=== PATIENT | female | born 1940 ===

== ENCOUNTER 2018-06-23 06:15 | Observation (INO) ==
--- NOTE | 2018-06-14 11:21 | EKG Report ---
Test Performed on : 06/14/2018 11:08:26 AM Test Reason : PAT Blood Pressure : / mmHG Vent. Rate : 066 BPM Atrial Rate : 066 BPM P-R Int : 144 ms QRS Dur : 084 ms QT Int : 396 ms P-R-T Axes : 072 078 069 degrees QTc Int : 415 ms Normal sinus rhythm. with sinus arrhythmia. Normal ECG When compared with ECG of 26-JAN-2017 10:47, No significant change was found Confirmed by Rafael PINON, Tani ([id number]) on 06/14/2018 5:29:31 PM
[2018-06-14 11:35] LABS: URINE SOURCE CLEAN CATCH
[2018-06-14 11:37] LABS: BASO# 0.04 X1000 (0.0-0.2); BASO% 0.7 % (0.0-0.8); EOS# 0.08 X1000 (0.0-0.7); EOS% 1.3 % (0.0-10.0); HEMATOCRIT 39.9 % (37.0-47.0); HEMOGLOBIN 12.6 g/dL (12.0-16.0); LYMPH# 1.85 X1000 (1.2-3.4); LYMPH% 30.8 % (20.5-51.1); MCH 29.6 PG (27-31); MCHC 31.6 g/dL (33-37); MCV 93.7 FL (81-99); MONO# 0.38 X1000 (0.11-0.59); MONO% 6.3 % (1.7-9.3); MPV 9.3 FL (7.4-10.4); NEUT# 3.66 X1000 (1.4-6.5); NEUT% 60.9 % (42.2-75.2); PLT 201 X1000 (130-400); RBC 4.26 XMIL (4.2-5.4); RDW 13.6 % (11.5-14.5); WBC 6.01 X1000 (4.8-10.8)
[2018-06-14 11:42] LABS: BILIRUBIN URINE NEGATIVE (NEGATIVE); BLOOD URINE NEGATIVE (NEGATIVE); COLOR YELLOW; GLUCOSE URINE NEGATIVE (NEGATIVE); KETONE URINE NEGATIVE (NEGATIVE); LEUKOCYTES URINE LARGE (NEGATIVE); NITRITE URINE NEGATIVE (NEGATIVE); PROTEIN URINE NEGATIVE (NEGATIVE); TURBIDITY URINE CLEAR (CLEAR); UR EPITHELIAL CELLS <10 /HPF (<10); URINE BACTERIA NEGATIVE /HPF; URINE RBC <10 /HPF (<10); URINE WBC <10 /HPF (<10); UROBILINOGEN URINE NORMAL (NORMAL)
[2018-06-14 11:57] LABS: AGAP 8; BUN 15 mg/dL (8-22); CALCIUM 9.2 mg/dL (8.8-10.2); CHLORIDE 104 mmol/L (98-107); COSMO 280; CREATININE 0.7 mg/dL (0.5-0.9); GLUCOSE 103 mg/dL (70-104); POTASSIUM 4.2 mmol/L (3.5-5.1); SODIUM 140 mmol/L (136-145); TCO2 28 mmol/L (25-35)
[2018-06-14 12:04] LABS: INR 0.97; PROTIME 13.7 Seconds (11.0-16.0)
[2018-06-23] MEDS ORDERED: COLACE ONE (06:57)
[2018-06-23] MEDS ORDERED: REGLAN ONE (06:58)
[2018-06-23] MEDS ORDERED: PEPCID ONE (06:58)
[2018-06-23] MEDS ORDERED: LYRICA ONE (06:58)
[2018-06-23] MEDS ORDERED: KEFZOL 1 GM/D5W 1 GM/50 ML IVPB ONE (06:58)
[2018-06-23] MEDS ORDERED: CELEBREX ONE (06:59)
[2018-06-23] MEDS ORDERED: LR 1,000 ML ONE (06:59)
[2018-06-23] MEDS ORDERED: DIPRIVAN 1% ONE (08:03)
[2018-06-23] MEDS ORDERED: FENTANYL ONE (08:03)
[2018-06-23] MEDS ORDERED: VERSED ONE ×2 (08:03)
[2018-06-23] MEDS ORDERED: EPHEDRINE ONE (08:04)
[2018-06-23] MEDS ORDERED: TORADOL ONE (08:12)
[2018-06-23] MEDS ORDERED: VANCOMYCIN ONE (08:12)
[2018-06-23] MEDS ORDERED: DURAMORPH ONE (08:12)
[2018-06-23] MEDS ORDERED: MARCAINE 0.25% PF ONE (08:12)
[2018-06-23] MEDS ORDERED: SODIUM CHLORIDE 0.9% ONE (08:13)
[2018-06-23] MEDS ORDERED: EXPAREL 1.3% ONE (08:13)
[2018-06-23] MEDS ORDERED: NEOSPORIN G.U. IRRIGANT ONE (08:13)
[2018-06-23] MEDS ORDERED: CYKLOKAPRON 1,000 MG/NS 1,000 MG/100 ML IVPB ONE ×2 (08:13)
[2018-06-23 09:38] LABS: URINE SOURCE CATH
[2018-06-23 09:49] LABS: BILIRUBIN URINE NEGATIVE (NEGATIVE); BLOOD URINE NEGATIVE (NEGATIVE); COLOR STRAW; GLUCOSE URINE NEGATIVE (NEGATIVE); KETONE URINE NEGATIVE (NEGATIVE); LEUKOCYTES URINE NEGATIVE (NEGATIVE); NITRITE URINE NEGATIVE (NEGATIVE); PH URINE 5.5; PROTEIN URINE NEGATIVE (NEGATIVE); TURBIDITY URINE CLEAR (CLEAR); UROBILINOGEN URINE NORMAL (NORMAL)
[2018-06-23 09:51] LABS: UR EPITHELIAL CELLS <10 /HPF (<10); URINE BACTERIA NEGATIVE /HPF; URINE RBC <10 /HPF (<10); URINE WBC <10 /HPF (<10)
[2018-06-23] MEDS ORDERED: OFIRMEV 1000 MG/ISOTONIC SOLN 1,000 MG/100 ML BOTTLE ONE (10:17)
[2018-06-23] MEDS ORDERED: DECADRON ONE (10:18)
[2018-06-23] MEDS ORDERED: NS 1,000 ML ONE (11:35)
--- NOTE | 2018-06-23 11:58 | Diag Imaging Result Doc PS360 ---
KNEE 1-2 VIEWS-LEFT - 06/23/2018 INDICATION: s/p L total knee TECHNIQUE: Two views COMPARISON: None FINDINGS: There has been placement of a long stemmed hinged knee prosthesis. There has been patellar resurfacing. There is a femur intramedullary trina. No hardware fracture or loosening. Alignment is anatomic. IMPRESSION: No complication. Electronically signed by Jamar Mehta 06/23/2018 11:55 AM
[2018-06-23] MEDS ORDERED: ZOFRAN PO PRN (13:00)
[2018-06-23] MEDS ORDERED: OXY IR PO PRN ×2 (13:00)
[2018-06-23] MEDS ORDERED: MORPHINE IV PRN ×3 (13:00)
--- NOTE | 2018-06-23 15:07 | OPERATIVE NOTE ---
PROCEDURE DATE: 06/23/2018 PREOPERATIVE DIAGNOSIS: Degenerative osteoarthritis of the left knee. POSTOPERATIVE DIAGNOSIS: Degenerative osteoarthritis of the left knee. PROCEDURE: Left total knee arthroplasty with DePuy Sigma TC3 size 3 left femur, a size 2.5 tibial tray with a 37 mm metaphyseal sleeve and a 75 x 14 universal fluted stem and 12.5 mm rotating platform tibial insert and a 35 mm round dome patella. SURGEON: Khadar Ortiz MD OIL DRILLER: MAGO Lindo [employer] MAINTENANCE TECHNICIAN: Bi Ewing RN ANESTHESIA: Spinal. INTRAVENOUS FLUIDS: 1300 mL lactated Ringer's. ESTIMATED BLOOD LOSS: 50 mL. TOURNIQUET TIME: 95 minutes at 300 mmHg. INDICATION: The patient is a pleasant 77-year-old female with a chronic history of pain and discomfort in her left knee. She has had continued pain and discomfort despite appropriate nonoperative treatment. X-rays revealed degenerative osteoarthritis. The patient is status post intramedullary nailing for a left intertrochanteric femur fracture in 2013. Given patient's findings, the recommendation to proceed with left total knee arthroplasty was offered. Risks and benefits of surgery were explained, including the risks of anesthesia, , bleeding, infection, failure to relieve pain, postoperative stiffness, nerve injury, blood clots, and other imponderables. All questions were answered. The patient and family wished to proceed with surgery. DETAILS OF OPERATION: The patient was taken to the operating room and placed supine on the operating table. Once adequate anesthesia was obtained, the patient's left lower extremity was subsequently prepped and draped in the usual sterile fashion. Esmarch was used to exsanguinate the left lower extremity and the tourniquet was inflated to 300 mmHg. A standard anterior incision was made with a skin knife. Medial and lateral skin envelopes were developed. Standard medial parapatellar arthrotomy was then performed. Patella fat pad was excised. Retractors were then placed. Attention was then turned to the proximal tibia, where was the proximal tibia was resected just inferior to the wear on the medial tibial plateau. After this resection had been conducted, intramedullary reaming was then conducted in the tibia up to size 14. The reamer was passed proximally to over-ream the proximal aspect of the tibia. After this had been performed, sequential broaching was then performed with the metaphyseal sleeve. Size 37 appeared to be the correct size. After this had been performed, a trial 2.5 tray with a 37 mm metaphyseal sleeve and a 75 x 14 stem was placed. It appeared to have good and good positioning. Attention was then turned to the distal femur where approximately 1 cm anterior to the PCL insertion, a starting reamer was passed. Intramedullary guide was placed up to the level of the tip of the trochanteric nail. After this had been performed, the distal femoral cutting block was pinned in position. The distal femoral cut was then performed in a standard fashion. After this had been performed, a box cutting guide was placed on the distal femur. A box cut was then performed. The knee was maintained in 90 degrees of flexion to maintain the rotation. After this had been performed, the trial femoral component was placed. The patient was tight both in flexion and extension. After this had been confirmed, the trial tibial stem was removed and the metaphyseal sleeve was countersunk and further resection was performed. The medial and lateral menisci had been excised prior to this. After this had been performed, the trial tibial component was then placed back in position. It was noted to be tight in flexion and extension. The patella was everted and resected in standard fashion. Patella size 35 appeared to be the correct size and corresponding holes were drilled. A trial patellar component was then placed and had good patellofemoral tracking. Given the fact that the patient had tightness in both flexion and extension, the tibial component was removed and the metaphyseal trial sleeve was countersunk and further resection of the proximal tibia was conducted. The wound was copiously irrigated with antibiotic pulsatile lavage while vancomycin was mixed with cement on the back table. The tibial construct was assembled on the back table. After cement had been prepared, cement was then placed on the proximal tibia. The tibial component with the 2.5 tray, the size 37 mm metaphyseal sleeve, and the 75 x 14 stem was then impacted in position. After this had been performed, the femoral component was then cemented in standard fashion. A trial tibial insert was then placed in full extension. Axial loading was maintained while the cement cured. The patella component was cemented in standard fashion. Patella clamp was placed. While the cement was curing, Exparel was placed in the deep soft tissue, as well as the subcutaneous tissue. After the cement had cured, peripheral cement was removed with a small osteotome. The 12.5 mm rotating platform tibial insert appeared to be the correct size. The trial insert was removed. Exparel was placed in the deep posterior capsule. The wound was copiously irrigated once again. The 12.5 mm rotating platform tibial insert was then placed. The knee was then carried through range of motion and had good range of motion and good soft tissue balancing. A one-eighth Hemovac back drain was placed and was not sewn in. Copious irrigation was then performed once again with antibiotic pulsatile lavage and #1 Vicryl was used to repair the arthrotomy, followed by 2-0 Vicryl to repair the subcutaneous tissue. Skin emir were then applied. Adaptic, sterile 4x4s, Webril, cryotherapy unit, and an Vinay wrap were applied to the left lower extremity. Patient tolerated the procedure well and was transferred to the recovery room in stable condition. cc: Khadar Ortiz MD
[2018-06-23] MEDS: KEFZOL 1 GM/D5W 1 GM/50 ML IVPB IV SCH (16:19)
[2018-06-23] MEDS: TYLENOL PO SCH ×2 (16:19→21:30)
[2018-06-23] MEDS: NS 1,000 ML IV SCH (21:48)
[2018-06-23] MEDS: PERIDEX MT SCH (21:49)
[2018-06-23] MEDS: ZOCOR PO SCH (21:49)
[2018-06-24] MEDS: KEFZOL 1 GM/D5W 1 GM/50 ML IVPB IV SCH (00:30)
[2018-06-24] MEDS ORDERED: OXY IR PO PRN ×2 (06:22)
[2018-06-24 06:27] LABS: HEMATOCRIT 31.9 % (37.0-47.0)
[2018-06-24] MEDS: TYLENOL PO SCH ×3 (06:34→19:31)
[2018-06-24] MEDS: SYNTHROID PO SCH (06:35)
[2018-06-24] MEDS: XARELTO PO SCH (06:35)
--- NOTE | 2018-06-24 06:55 | PROGRESS NOTE ---
DATE: 06/24/2018 SUBJECTIVE: The patient is a pleasant, 77-year-old female who is 1 day status post left total knee arthroplasty. She had some discomfort earlier in the night which was relieved with her pain medication. She feels better this morning. PHYSICAL EXAMINATION: On physical exam, the patient's left lower extremity dressing is intact. Calf is soft. Active dorsiflexion and plantar flexion. Neurovascularly intact distally. LABS: Her labs are pending. IMPRESSION: Postoperative day #1 status post left total knee arthroplasty. PLAN: At this point, we will change her dressing, discontinue her drain and Higgins. We will begin mobilization with physical therapy. We will consult social media marketing specialist for discharge planning. It was felt the patient would benefit from inpatient rehabilitation. cc: Khadar Ortiz MD
[2018-06-24 07:11] LABS: AGAP 8; BUN 15 mg/dL (8-22); CALCIUM 8.1 mg/dL (8.8-10.2); CHLORIDE 109 mmol/L (98-107); COSMO 282; CREATININE 0.7 mg/dL (0.5-0.9); GLUCOSE 104 mg/dL (70-104); POTASSIUM 4.1 mmol/L (3.5-5.1); SODIUM 141 mmol/L (136-145); TCO2 24 mmol/L (25-35)
[2018-06-24] MEDS: ULTRAM PO SCH (08:00)
[2018-06-24] MEDS: PERIDEX MT SCH ×2 (14:25→22:08)
[2018-06-24] MEDS: NS 1,000 ML IV SCH (15:44)
--- NOTE | 2018-06-24 21:40 | CONSULTATION ---
DATE OF CONSULTATION: 06/24/2018 REFERRING PHYSICIAN: Khadar Ortiz MD REASON FOR CONSULT: Medical management. HISTORY OF PRESENT ILLNESS: Ms. Giron, a 77-year-old white female patient, recently had total left knee arthroplasty. I was consulted for medical management. The patient does have multiple medical problems including hypertension, hypothyroidism, hyperlipidemia, osteoarthritis, pernicious anemia. The patient underwent surgery yesterday under spinal anesthesia. The patient tolerated procedure well. The patient did have significant benign positional vertigo yesterday. Today she is doing better. No major headache, occasional tinnitus, no runny nose, stuffy nose, sinus drainage. Denied any sore throat. No typical chest pain, palpitation, orthopnea or PND. No unusual cough, expectoration, or hemoptysis. Denied any dysphagia or odynophagia. No abdominal pain, nausea, vomiting. No diarrhea. Occasional constipation. The patient had Higgins catheter which was removed today, does have significant arthritis involving multiple joints, unquantified weight loss. No heat or cold intolerance. Denied polyuria, polydipsia. No gross hematuria. No major depression. Denied any bleeding diathesis. No further history available at this time. ALLERGIES: No known drug allergy. MEDICATIONS: Vitamin D3, vitamin B12 injection, Mobic, Synthroid, Zocor, Ultracet. PAST MEDICAL HISTORY: Osteoarthritis status post right knee replacement, hypothyroidism, pernicious anemia, hyperlipidemia, vitamin D deficiency, gastritis, PERSONAL HISTORY: , nonsmoker. Denied alcohol or substance abuse. FAMILY HISTORY: Significant for osteoporosis, hypertension, hyperlipidemia. REVIEW OF SYSTEMS: As per HPI. PHYSICAL EXAMINATION: General: Elderly white female patient in no acute distress. Rest from the chart. Head: Atraumatic, normocephalic. [place] conjunctivae. Anicteric sclerae. Extraocular muscle movement normal. Fundus cannot be penetrated. Good oral hygiene. No tonsillopharyngeal congestion or exudate. Ears and nose benign. Neck: Supple. No JVD, thyromegaly or lymphadenopathy. Chest: Bilateral good air entry present. No rales. Cardiovascular: S1 and S2 heard. No gallop or thrill. Abdomen: Soft. No distention. Bowel sounds present. No organomegaly or mass. Extremities: No cyanosis or clubbing. No acute DVT. Wound of recent surgery looks well on the left knee. Central nervous system: Alert, awake, answering questions fairly well. LABORATORY DATA: Admission hemoglobin 12.6, hematocrit 39.9. Labs done today: Hemoglobin was 10, hematocrit 31.9, PT/INR 0.9. PTT was 30.4. Electrolytes fairly benign. Urinalysis was negative. EKG done on June 15 noted. CONSIDERATION: Her medical problems include osteoarthritis, which was diffuse, hyperlipidemia, blood-loss anemia, pernicious anemia, hypothyroidism. PLAN: Her current medications noted. Continue pain medicine. DVT prophylaxis and GI prophylaxis. Fall precaution. The patient wants to consider going to rehab as she is living by herself and hard for her to manage and will consider social services analyst consult for the same. Encouraged incentive spirometry, ambulation. Higgins catheter was discontinued. Thanks for consult. We will follow patient with you. cc: MD Khadar Mancera MD
[2018-06-24] MEDS: ZOCOR PO SCH (22:07)
[2018-06-25] MEDS: TYLENOL PO SCH ×5 (00:44→11:25)
[2018-06-25] MEDS: NS 1,000 ML IV SCH ×2 (03:11→06:32)
[2018-06-25] MEDS: XARELTO PO SCH (05:38)
[2018-06-25 06:41] LABS: HEMATOCRIT 34.8 % (37.0-47.0)
[2018-06-25] MEDS: SYNTHROID PO SCH (06:42)
[2018-06-25 07:43] VITALS: BP 124/52
--- NOTE | 2018-06-25 07:54 | PROGRESS NOTE ---
DATE: 06/25/2018 SUBJECTIVE: Ms. Giron is doing fair. Complaining of pain at the left knee, minimal swelling. No high-grade fever or chills. Denied any nausea or vomiting. OBJECTIVE: Vital Signs: T-max 99.4 degrees. Her blood pressure 123/54, pulse 69, respiration 18. Neck: Supple. No JVD. Lungs: Bilateral good air entry present. CVS: S1 and S2 heard. Abdomen: Soft, nontender. Bowel sounds present. Extremities: Minimal swelling at the left knee. No evidence of infection. STAFF RADIOGRAPHER: Alert, awake. Able to move all 4 limbs. PROBLEM LIST: 1. Osteoarthritis, status post left total knee arthroplasty. 2. Hypothyroidism. 3. Hyperlipidemia. 4. Gastritis. 5. Pernicious anemia. PLAN: The patient will need inpatient rehab. We are waiting for placement. Overall, patient is doing fair. Will continue current treatment and close observation. Plan discussed with the patient. cc: MD Khadar Mancera MD
--- NOTE | 2018-06-25 09:07 | ORTHOPAEDICS PROGRESS NOTE ---
DATE: 06/25/2018 SUBJECTIVE: The patient is a 77-year-old female who is 2 days status post left total knee arthroplasty. She is currently resting comfortably. PHYSICAL EXAMINATION: Patient's left lower extremity wound looks good. There are no signs or symptoms of infection. She has expected swelling. Calf is soft. She has active dorsiflexion and plantar flexion. LABORATORY DATA: Her labs are pending. IMPRESSION: Postoperative day #2 status post left total knee arthroplasty. PLAN: At this point, the patient has been slow to mobilize with physical therapy and we feel that she would benefit from inpatient rehabilitation and Cornetist has been consulted to assist for discharge planning. She will continue with mobilization with physical therapy. cc: Khadar Ortiz MD
[2018-06-25] MEDS: ULTRAM PO SCH (09:13)
[2018-06-25] MEDS: PERIDEX MT SCH (09:14)
== END 2018-06-25 12:03 | disposition home or self-care (01) ==
LOC: 4N 06:15 → OR 06:15
PROVIDERS: ADMIT Orthopaedic Surgery Adult Reconstructive Orthopaedic Surgery; ATTEND Orthopaedic Surgery Adult Reconstructive Orthopaedic Surgery
CPT/HCPCS: 73560; 80048; 81001; 85014; 85018; 85025; 85610; 85730; 86850; 86900; 86901; 88305; 88311; 93005; 93010; 94760; 94799; 97110; 97116; 97162; 97530; A9270; C9290; J0131; J0690; J1100; J1885; J2250; J2274; J2275; J3010; J3370; J7030; J7120; Q9974; S0020